=== PATIENT | female | born 1965 | race African-American/Black ===

== ENCOUNTER 2018-02-04 11:45 | Inpatient (IN) | payer OTHER ==
[2018-02-04 12:36] VITALS: BMI 34.7
--- NOTE | 2018-02-04 14:27 | HP ---
CIWA Score - CIWA Score Nausea/Vomitin Muscle Tremors: 3 Anxiety: 2 Agitation: 2 Paroxysmal Sweats: 1-Minimal Palms Moist Orientation: 0-Oriented Tacttile Disturbances: 1-Very Mild Itch/Numbness Auditory Disturbances: 1-Very Mild Visual Disturbances: 0-None Headache: 2-Mild CIWA-Ar Total Score: 15 Admission ROS BHS - HPI Chief Complaint: i need help to stop drinking alcohol and cocaine Allergies/Adverse Reactions: Allergies Allergy/AdvReac Type Severity Reaction Status Date / Time No Known Allergies Allergy Verified 02/04/18 14:37 History of Present Illness: this 52 years old female with alcohol and cocaine dependence,seeking detox, withdrawal symptom,last 1985 at [facility],old cva,carpal tunnel both wrists,ambulation with walker,fibroid uterus, arthritis both knees,back,neck, s/p arthroscopic surgery both knees rotator cuff of right shoulder longest sobriety 6 years - Ebola screening Have you traveled outside of the country in the last 21 days: No Have you had contact with anyone from an Ebola affected area: No Have you been sick,other than usual withdrawal symptoms: No Do you have a fever: No - Review of Systems Constitutional: Malaise, Night Sweats, Changes in sleep EENT: reports: Nose Congestion Respiratory: reports: No Symptoms reported Cardiac: reports: Palpitations GI: reports: Nausea, Poor Appetite, Abdominal cramping : reports: No Symptoms Reported Integumentary: reports: Dryness Neuro: reports: Headache, Tremors Endocrine: reports: No Symptoms Reported Hematology: reports: No Symptoms Reported Psychiatric: reports: No Sypmtoms Reported, Judgement Intact, Mood/Affect Appropiate, Orientated x3, other (bipolar disorder) Patient History - Patient Medical History Hx Anemia: No Hx Asthma: No Hx Chronic Obstructive Pulmonary Disease (COPD): No Hx Cancer: No Hx Cardiac Disorders: No Hx Congestive Heart Failure: No Hx Hypertension: Yes (on med) Hx Hypercholesterolemia: No Hx Pacemaker: No HX Cerebrovascular Accident: Yes (old in 2006) Hx Seizures: No Hx Dementia: No Hx Diabetes: No Hx Gastrointestinal Disorders: No Hx Liver Disease: No Hx Genitourinary Disorders: No Hx Sexually Transmitted Disorders: No Hx Renal Disease (ESRD): No Hx Thyroid Disease: No Hx Human Immunodeficiency Virus (HIV): No (last 01/23) Hx Hepatitis C: No Hx Depression: Yes Hx Suicide Attempt: No Hx Bipolar Disorder: Yes (no med) Hx Schizophrenia: No Other Medical History: no suicidal,no homicidal,carpal tunnel both,fibroid - Patient Surgical History Past Surgical History: Yes Hx Orthopedic Surgery: Yes (arthroscopic sugery both knees,skin graft rt foot,) - PPD History Previous Implant?: Yes Documented Results: Positive w/o proof Implanted On Prior R Admission?: No PPD to be Administered?: No - Reproductive History Patient is a Female of Child Bearing Age (11 -55 yrs old): Yes Patient : No - Smoking Cessation Smoking history: Current every day smoker Have you smoked in the past 12 months: Yes Aproximately how many cigarettes per day: 10 Hx Chewing Tobacco Use: No Initiated information on smoking cessation: Yes 'Breaking Loose' booklet given: 02/04/18 - Substance & Tx. History Hx Alcohol Use: Yes Hx Substance Use: Yes Substance Use Type: Alcohol, Cocaine Hx Substance Use Treatment: Yes (1985 [facility]) - Substances Abused Alcohol Route: Oral Frequency: Daily Amount used: 1 pint whiskey Age of first use: 13 Date of Last Use: 02/04/18 Cocaine Route: Inhalation Frequency: 1-2 times per week Amount used: $100 Age of first use: 11 Date of Last Use: 02/02/18 Family Disease History - Family Disease History Family Disease History: Other: Father (alcohol,) Admission Physical Exam BHS - Vital Signs Vital Signs: Vital Signs - 24 hr 02/04/18 12:34 Temperature 97.9 F Pulse Rate 90 Respiratory 18 Rate Blood Pressure 113/68 - Physical General Appearance: Yes: Moderate Distress, Tremorous, Irritable, Anxious HEENTM: Yes: FRANTZ, Pharynx Normal, Other (s/p reconstructive surgery right face) Respiratory: Yes: Lungs Clear, Normal Breath Sounds, No Respiratory Distress Neck: Yes: Within Normal Limits, Supple, Trachea in good position Breast: Yes: Breast Exam Deferred Cardiology: Yes: Within Normal Limits, Regular Rhythm, Regular Rate, S1, S2 Abdominal: Yes: Within Normal Limits, Normal Bowel Sounds, Non Tender, Flat, Soft Genitourinary: Yes: Within Normal Limits Back: Yes: Muscle Spasm Musculoskeletal: Yes: full range of Motion, Back pain, Muscle Pain Extremities: Yes: Normal Range of Motion, Tremors 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, Alert, Motor Strength 5/5 Integumentary: Yes: Dry Lymphatic: Yes: Within Normal Limits - Diagnostic (1) Alcohol dependence with uncomplicated withdrawal Current Visit: Yes Status: Acute (2) Cocaine dependence Current Visit: Yes Status: Acute (3) Old cerebrovascular accident (CVA) without late effect Current Visit: Yes Status: Acute (4) Arthritis Current Visit: Yes Status: Acute (5) Fibroid uterus Current Visit: Yes Status: Acute (6) Carpal tunnel syndrome Current Visit: Yes Status: Acute (7) Essential hypertension Current Visit: Yes Status: Acute (8) Positive PPD, treated Current Visit: Yes Status: Acute (9) Bipolar disorder Current Visit: Yes Status: Acute (10) Nicotine dependence Current Visit: Yes Status: Acute (11) Walker as ambulation aid Current Visit: Yes Status: Acute (12) History of skin graft Current Visit: Yes Status: Acute (13) Rotator cuff disorder Current Visit: Yes Status: Acute Cleared for Admission [facility] - Detox or Rehab [facility] Level of Care: Medically Managed Detox Regimen/Protocol: Librium [facility] Breath Alcohol Content Breath Alcohol Content: 0 Urine Pregancy Test - Result Urine Test Results: Negative- NO Line Present Urine Drug Screen - Results Drug Screen Negative: No Urine Drug Screen Results: ROLLY-Cocaine
[2018-02-04] MEDS ORDERED: ACETAMINOPHEN 325 MG TABLET (FP) PO PRN (15:35)
[2018-02-04] MEDS ORDERED: chlordiazePOXIDE HCL 25 MG CAPSULE PO PRN (15:35)
[2018-02-04] MEDS ORDERED: guaiFENesin/D-METHORPHAN HB 10 ML UNIT-DOSE CUPS PO PRN (15:35)
[2018-02-04] MEDS ORDERED: P-EPHED 60MG/TRIPROLIDI 2.5MG TABLET PO PRN (15:35)
[2018-02-04] MEDS ORDERED: MENTHOL/PHENOL 1 EACH UD MM PRN (15:35)
[2018-02-04] MEDS ORDERED: MAG HYDROX/AL HYDROX/SIMETH 30 ML UNIT-DOSE CUP PO PRN (15:35)
[2018-02-04] MEDS ORDERED: MAGNESIUM HYDROX 2400MG/30ML ORAL SUSPENSION 30 ML CUP PO PRN (15:35)
[2018-02-04] MEDS ORDERED: IBUPROFEN 400 MG TABLET (FP) PO PRN (15:35)
[2018-02-04] MEDS ORDERED: MAGNESIUM CITRATE 300 ML BOTTLE PO PRN (15:35)
[2018-02-04] MEDS ORDERED: LOPERAMIDE HCL 2 MG CAPSULE PO PRN (15:35)
[2018-02-04] MEDS ORDERED: hydrOXYzine PAMOATE 50 MG CAPSULE (FP) PO PRN (15:35)
[2018-02-04] MEDS ORDERED: chlordiazePOXIDE HCL 25 MG CAPSULE PO ONE (16:00)
[2018-02-04] MEDS: chlordiazePOXIDE HCL 25 MG CAPSULE PO SCH ×2 (17:31→22:27)
[2018-02-04] MEDS ORDERED: MELATONIN 5 MG TABLETS PO PRN (22:00)
[2018-02-04] MEDS: THIAMINE HCL 100 MG TABLET (FP) PO SCH (22:27)
[2018-02-04] MEDS: PREGABALIN 75 MG CAPSULE PO SCH (22:27)
[2018-02-04 23:10] LABS: URINE APPEARANCE CLOUDY; URINE BILIRUBIN NEGATIVE (<2.0 mg/dL); URINE COLOR YELLOW; URINE GLUCOSE (UA) NEGATIVE (NEGATIVE); URINE KETONE NEGATIVE (NEGATIVE); URINE LEUK ESTERASE NEGATIVE (NEGATIVE); URINE NITRITE NEGATIVE (NEGATIVE); URINE PROTEIN NEGATIVE (NEGATIVE); URINE UROBILINOGEN NEGATIVE mg/dL (0.2-1.0)
[2018-02-05] MEDS: chlordiazePOXIDE HCL 25 MG CAPSULE PO SCH ×4 (06:45→23:29)
[2018-02-05 10:02] LABS: HEMATOCRIT 39.5 % (32.4-45.2); HEMOGLOBIN 13.1 GM/dL (10.7-15.3); MCH 30.9 pg (25.7-33.7); MCHC 33.2 g/dl (32.0-36.0); MEAN CELL VOLUME 92.9 fl (80-96); MEAN PLT VOLUME 9.7 fl (7.5-11.1); PLATELET COUNT 222 K/MM3 (134-434); RBC 4.25 M/mm3 (3.60-5.2); RDW 14.5 % (11.6-15.6); WHITE BLOOD COUNT 8.3 K/mm3 (4.0-10.0)
[2018-02-05] MEDS: PRENATAL VITAMINS W/ FOLIC ACID TABLET (FP) PO SCH (10:42)
[2018-02-05] MEDS: HYDROCHLOROTHIAZIDE 12.5 MG CAPSULE (FP) PO SCH (10:43)
[2018-02-05] MEDS: ASPIRIN 81 MG CHEWABLE TABLETS PO SCH (10:43)
[2018-02-05 11:12] LABS: ALBUMIN 3.9 g/dl (3.4-5.0); CHLORIDE 109 mmol/L (98-107); POTASSIUM 3.9 mmol/L (3.5-5.1); SODIUM 143 mmol/L (136-145)
[2018-02-05 11:17] LABS: ALK PHOS 74 U/L (45-117); ANION GAP 6 (8-16); BILIRUBIN,TOTAL 0.6 mg/dL (0.2-1.0); BLOOD UREA NITROGEN 14 mg/dL (7-18); CALCIUM 8.8 mg/dL (8.5-10.1); CO2 28 mmol/L (21-32); GLUCOSE,RANDOM 88 mg/dL (74-106); SGOT/AST 16 U/L (15-37); SGPT/ALT 15 U/L (12-78)
[2018-02-05] MEDS ORDERED: COLLOIDAL OATMEAL 1 BAR EACH TP PRN (11:19)
[2018-02-05] MEDS: PREGABALIN 75 MG CAPSULE PO SCH ×2 (11:27→23:30)
--- NOTE | 2018-02-05 12:05 | PN ---
[facility] CIWA - CIWA Score Nausea/Vomitin-No Nausea/No Vomiting Muscle Tremors: 3 Anxiety: 3 Agitation: 3 Paroxysmal Sweats: 1-Minimal Palms Moist Orientation: 0-Oriented Tacttile Disturbances: 2-Mild Itch/Numbness/Burn Auditory Disturbances: 0-None Visual Disturbances: 0-None Headache: 0-None Present CIWA-Ar Total Score: 12 S Progress Note (SOAP) Subjective: mild gi distress, skin itching trouble sleep at night showered wants aveeno soap and skin cream admitted last dose antihypertensant was a week ago Objective: 02/05/18 12:08 Vital Signs Temperature 97.7 F 02/05/18 10:38 Pulse Rate 88 02/05/18 10:38 Respiratory Rate 18 02/05/18 10:38 Blood Pressure 99/64 02/05/18 10:38 O2 Sat by Pulse Oximetry (%) Laboratory Last Values WBC 8.3 K/mm3 (4.0-10.0) 02/05/18 06:00 RBC 4.25 M/mm3 (3.60-5.2) 02/05/18 06:00 Hgb 13.1 GM/dL (10.7-15.3) 02/05/18 06:00 Hct 39.5 % (32.4-45.2) 02/05/18 06:00 MCV 92.9 fl (80-96) 02/05/18 06:00 MCH 30.9 pg (25.7-33.7) 02/05/18 06:00 MCHC 33.2 g/dl (32.0-36.0) 02/05/18 06:00 RDW 14.5 % (11.6-15.6) 02/05/18 06:00 Plt Count 222 K/MM3 (134-434) 02/05/18 06:00 MPV 9.7 fl (7.5-11.1) 02/05/18 06:00 Sodium 143 mmol/L (136-145) 02/05/18 06:00 Potassium 3.9 mmol/L (3.5-5.1) 02/05/18 06:00 Chloride 109 mmol/L (98-107) H 02/05/18 06:00 Carbon Dioxide 28 mmol/L (21-32) 02/05/18 06:00 Anion Gap 6 (8-16) L 02/05/18 06:00 BUN 14 mg/dL (7-18) 02/05/18 06:00 Creatinine 1.0 mg/dL (0.55-1.02) 02/05/18 06:00 Creat Clearance w eGFR 58.69 (>60) 02/05/18 06:00 Random Glucose 88 mg/dL (74-106) 02/05/18 06:00 Calcium 8.8 mg/dL (8.5-10.1) 02/05/18 06:00 Total Bilirubin 0.6 mg/dL (0.2-1.0) 02/05/18 06:00 AST 16 U/L (15-37) 02/05/18 06:00 ALT 15 U/L (12-78) 02/05/18 06:00 Alkaline Phosphatase 74 U/L (45-117) 02/05/18 06:00 Total Protein 8.0 g/dl (6.4-8.2) 02/05/18 06:00 Albumin 3.9 g/dl (3.4-5.0) 02/05/18 06:00 Urine Color Yellow 02/04/18 23:00 Urine Appearance Cloudy 02/04/18 23:00 Urine pH 5.0 (5.0-8.0) 02/04/18 23:00 Ur Specific [place] 1.017 (1.001-1.035) 02/04/18 23:00 Urine Protein Negative (NEGATIVE) 02/04/18 23:00 Urine Glucose (UA) Negative (NEGATIVE) 02/04/18 23:00 Urine Ketones Negative (NEGATIVE) 02/04/18 23:00 Urine Blood Negative (NEGATIVE) 02/04/18 23:00 Urine Nitrite Negative (NEGATIVE) 02/04/18 23:00 Urine Bilirubin Negative (<2.0 mg/dL) 02/04/18 23:00 Urine Urobilinogen Negative mg/dL (0.2-1.0) 02/04/18 23:00 Ur Leukocyte Esterase Negative (NEGATIVE) 02/04/18 23:00 HIV 1&2 Antibody Screen Negative 02/04/18 15:00 HIV P24 Antigen Negative 02/04/18 15:00 lab noted Assessment: 02/05/18 12:09 withdrawal sx Plan: continue detox
[2018-02-05 12:50] LABS: SICKLE CELL SCREEN NEGATIVE (NEGATIVE)
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
[2018-02-05] MEDS: MINERAL OIL/PETROLAT/WATER TOPICAL CREAM 113 GM JAR TP SCH (23:29)
[2018-02-05] MEDS: THIAMINE HCL 100 MG TABLET (FP) PO SCH (23:30)
[2018-02-06] MEDS: chlordiazePOXIDE HCL 25 MG CAPSULE PO SCH ×2 (05:42→10:14)
--- NOTE | 2018-02-06 09:48 | EKG ---
Test Reason : Blood Pressure : / mmHG Vent. Rate : 079 BPM Atrial Rate : 079 BPM P-R Int : 160 ms QRS Dur : 070 ms QT Int : 380 ms P-R-T Axes : 059 032 032 degrees QTc Int : 435 ms NORMAL SINUS RHYTHM NONSPECIFIC T WAVE ABNORMALITY ABNORMAL ECG NO PREVIOUS ECGS AVAILABLE Confirmed by DORI STEVEN, JAXSON ([id number]) on 02/06/2018 9:48:13 AM Referred By: Confirmed By:JAXSON MEADOWS MD
[2018-02-06] MEDS: PREGABALIN 75 MG CAPSULE PO SCH ×2 (10:14→22:11)
[2018-02-06] MEDS: ASPIRIN 81 MG CHEWABLE TABLETS PO SCH (10:14)
[2018-02-06] MEDS: HYDROCHLOROTHIAZIDE 12.5 MG CAPSULE (FP) PO SCH (10:14)
[2018-02-06] MEDS: PRENATAL VITAMINS W/ FOLIC ACID TABLET (FP) PO SCH (10:14)
--- NOTE | 2018-02-06 11:18 | PN ---
S CIWA - CIWA Score Nausea/Vomitin-Mild Nausea/No Vomiting Muscle Tremors: 3 Anxiety: 2 Agitation: 2 Paroxysmal Sweats: 1-Minimal Palms Moist Orientation: 0-Oriented Tacttile Disturbances: 0-None Auditory Disturbances: 0-None Visual Disturbances: 0-None Headache: 0-None Present CIWA-Ar Total Score: 9 BHS Progress Note (SOAP) Subjective: mild gi distress sweat tremor anxiety restlessness agitation irritable Objective: 02/06/18 11:20 Vital Signs Temperature 97.9 F 02/06/18 09:30 Pulse Rate 88 02/06/18 09:30 Respiratory Rate 18 02/06/18 09:30 Blood Pressure 115/71 02/06/18 09:30 O2 Sat by Pulse Oximetry (%) Laboratory Last Values WBC 8.3 K/mm3 (4.0-10.0) 02/05/18 06:00 RBC 4.25 M/mm3 (3.60-5.2) 02/05/18 06:00 Hgb 13.1 GM/dL (10.7-15.3) 02/05/18 06:00 Hct 39.5 % (32.4-45.2) 02/05/18 06:00 MCV 92.9 fl (80-96) 02/05/18 06:00 MCH 30.9 pg (25.7-33.7) 02/05/18 06:00 MCHC 33.2 g/dl (32.0-36.0) 02/05/18 06:00 RDW 14.5 % (11.6-15.6) 02/05/18 06:00 Plt Count 222 K/MM3 (134-434) 02/05/18 06:00 MPV 9.7 fl (7.5-11.1) 02/05/18 06:00 Sickle Cell Screen Negative (NEGATIVE) 02/05/18 06:00 Sodium 143 mmol/L (136-145) 02/05/18 06:00 Potassium 3.9 mmol/L (3.5-5.1) 02/05/18 06:00 Chloride 109 mmol/L (98-107) H 02/05/18 06:00 Carbon Dioxide 28 mmol/L (21-32) 02/05/18 06:00 Anion Gap 6 (8-16) L 02/05/18 06:00 BUN 14 mg/dL (7-18) 02/05/18 06:00 Creatinine 1.0 mg/dL (0.55-1.02) 02/05/18 06:00 Creat Clearance w eGFR 58.69 (>60) 02/05/18 06:00 Random Glucose 88 mg/dL (74-106) 02/05/18 06:00 Calcium 8.8 mg/dL (8.5-10.1) 02/05/18 06:00 Total Bilirubin 0.6 mg/dL (0.2-1.0) 02/05/18 06:00 AST 16 U/L (15-37) 02/05/18 06:00 ALT 15 U/L (12-78) 02/05/18 06:00 Alkaline Phosphatase 74 U/L (45-117) 02/05/18 06:00 Total Protein 8.0 g/dl (6.4-8.2) 02/05/18 06:00 Albumin 3.9 g/dl (3.4-5.0) 02/05/18 06:00 Urine Color Yellow 02/04/18 23:00 Urine Appearance Cloudy 02/04/18 23:00 Urine pH 5.0 (5.0-8.0) 02/04/18 23:00 Ur Specific [place] 1.017 (1.001-1.035) 02/04/18 23:00 Urine Protein Negative (NEGATIVE) 02/04/18 23:00 Urine Glucose (UA) Negative (NEGATIVE) 02/04/18 23:00 Urine Ketones Negative (NEGATIVE) 02/04/18 23:00 Urine Blood Negative (NEGATIVE) 02/04/18 23:00 Urine Nitrite Negative (NEGATIVE) 02/04/18 23:00 Urine Bilirubin Negative (<2.0 mg/dL) 02/04/18 23:00 Urine Urobilinogen Negative mg/dL (0.2-1.0) 02/04/18 23:00 Ur Leukocyte Esterase Negative (NEGATIVE) 02/04/18 23:00 HIV 1&2 Antibody Screen Negative 02/04/18 15:00 HIV P24 Antigen Negative 02/04/18 15:00 lab noted Assessment: 02/06/18 11:21 withdrawal sx Plan: continue detox
[2018-02-06] MEDS: chlordiazePOXIDE 5 MG CAPSULE PO SCH ×2 (17:14→22:11)
[2018-02-06] MEDS: ZOLPIDEM TARTRATE 5 MG TABLET PO PRN (22:11)
[2018-02-06] MEDS: THIAMINE HCL 100 MG TABLET (FP) PO SCH (22:11)
[2018-02-06] MEDS: MINERAL OIL/PETROLAT/WATER TOPICAL CREAM 113 GM JAR TP SCH (22:51)
[2018-02-07] MEDS: chlordiazePOXIDE 5 MG CAPSULE PO SCH ×2 (06:45→10:21)
--- NOTE | 2018-02-07 06:45 | PN ---
[facility] Progress Note Note: I was called by the nurse, Mr Kylie Andrews told evaluate patient who fell this morning. Patient states " I was going to get my medication, felt dizzy and fell' '. Fall was witnessed by another patient, Ms. Emma Lr in [address]. Patient states that she fell on her knees. She denies pain or discomfort at this time. No injury noted or reported. Fall protocol # 2 initiated. Vital sign status post fall B/P 107/69, HR 77, R 18, T 97.7F. Vital Signs Temperature 98.0 F 02/06/18 22:13 Pulse Rate 87 02/06/18 22:13 Respiratory Rate 18 02/07/18 03:30 Blood Pressure 107/75 02/06/18 22:13 O2 Sat by Pulse Oximetry (%) Laboratory Last Values WBC 8.3 K/mm3 (4.0-10.0) 02/05/18 06:00 RBC 4.25 M/mm3 (3.60-5.2) 02/05/18 06:00 Hgb 13.1 GM/dL (10.7-15.3) 02/05/18 06:00 Hct 39.5 % (32.4-45.2) 02/05/18 06:00 MCV 92.9 fl (80-96) 02/05/18 06:00 MCH 30.9 pg (25.7-33.7) 02/05/18 06:00 MCHC 33.2 g/dl (32.0-36.0) 02/05/18 06:00 RDW 14.5 % (11.6-15.6) 02/05/18 06:00 Plt Count 222 K/MM3 (134-434) 02/05/18 06:00 MPV 9.7 fl (7.5-11.1) 02/05/18 06:00 Sickle Cell Screen Negative (NEGATIVE) 02/05/18 06:00 Sodium 143 mmol/L (136-145) 02/05/18 06:00 Potassium 3.9 mmol/L (3.5-5.1) 02/05/18 06:00 Chloride 109 mmol/L (98-107) H 02/05/18 06:00 Carbon Dioxide 28 mmol/L (21-32) 02/05/18 06:00 Anion Gap 6 (8-16) L 02/05/18 06:00 BUN 14 mg/dL (7-18) 02/05/18 06:00 Creatinine 1.0 mg/dL (0.55-1.02) 02/05/18 06:00 Creat Clearance w eGFR 58.69 (>60) 02/05/18 06:00 Random Glucose 88 mg/dL (74-106) 02/05/18 06:00 Calcium 8.8 mg/dL (8.5-10.1) 02/05/18 06:00 Total Bilirubin 0.6 mg/dL (0.2-1.0) 02/05/18 06:00 AST 16 U/L (15-37) 02/05/18 06:00 ALT 15 U/L (12-78) 02/05/18 06:00 Alkaline Phosphatase 74 U/L (45-117) 02/05/18 06:00 Total Protein 8.0 g/dl (6.4-8.2) 02/05/18 06:00 Albumin 3.9 g/dl (3.4-5.0) 02/05/18 06:00 Urine Color Yellow 02/04/18 23:00 Urine Appearance Cloudy 02/04/18 23:00 Urine pH 5.0 (5.0-8.0) 02/04/18 23:00 Ur Specific [place] 1.017 (1.001-1.035) 02/04/18 23:00 Urine Protein Negative (NEGATIVE) 02/04/18 23:00 Urine Glucose (UA) Negative (NEGATIVE) 02/04/18 23:00 Urine Ketones Negative (NEGATIVE) 02/04/18 23:00 Urine Blood Negative (NEGATIVE) 02/04/18 23:00 Urine Nitrite Negative (NEGATIVE) 02/04/18 23:00 Urine Bilirubin Negative (<2.0 mg/dL) 02/04/18 23:00 Urine Urobilinogen Negative mg/dL (0.2-1.0) 02/04/18 23:00 Ur Leukocyte Esterase Negative (NEGATIVE) 02/04/18 23:00 RPR Titer Nonreactive (NONREACTIVE) 02/05/18 06:00 HIV 1&2 Antibody Screen Negative 02/04/18 15:00 HIV P24 Antigen Negative 02/04/18 15:00 Action: Fall protocol # 2 initiated.
[2018-02-07] MEDS: PRENATAL VITAMINS W/ FOLIC ACID TABLET (FP) PO SCH (10:22)
[2018-02-07] MEDS: HYDROCHLOROTHIAZIDE 12.5 MG CAPSULE (FP) PO SCH (10:22)
[2018-02-07] MEDS: ASPIRIN 81 MG CHEWABLE TABLETS PO SCH (10:22)
[2018-02-07] MEDS: PREGABALIN 75 MG CAPSULE PO SCH ×2 (10:23→23:16)
--- NOTE | 2018-02-07 11:30 | PN ---
S Progress Note (SOAP) Subjective: feeling better less sweat no tremor denies pain from fall on 02/07/18 alert oriented x 3 social with peers in day room Objective: 02/07/18 11:29 Vital Signs Temperature 97.5 F L 02/07/18 10:25 Pulse Rate 80 02/07/18 10:25 Respiratory Rate 18 02/07/18 10:25 Blood Pressure 119/76 02/07/18 10:25 O2 Sat by Pulse Oximetry (%) Laboratory Last Values WBC 8.3 K/mm3 (4.0-10.0) 02/05/18 06:00 RBC 4.25 M/mm3 (3.60-5.2) 02/05/18 06:00 Hgb 13.1 GM/dL (10.7-15.3) 02/05/18 06:00 Hct 39.5 % (32.4-45.2) 02/05/18 06:00 MCV 92.9 fl (80-96) 02/05/18 06:00 MCH 30.9 pg (25.7-33.7) 02/05/18 06:00 MCHC 33.2 g/dl (32.0-36.0) 02/05/18 06:00 RDW 14.5 % (11.6-15.6) 02/05/18 06:00 Plt Count 222 K/MM3 (134-434) 02/05/18 06:00 MPV 9.7 fl (7.5-11.1) 02/05/18 06:00 Sickle Cell Screen Negative (NEGATIVE) 02/05/18 06:00 Sodium 143 mmol/L (136-145) 02/05/18 06:00 Potassium 3.9 mmol/L (3.5-5.1) 02/05/18 06:00 Chloride 109 mmol/L (98-107) H 02/05/18 06:00 Carbon Dioxide 28 mmol/L (21-32) 02/05/18 06:00 Anion Gap 6 (8-16) L 02/05/18 06:00 BUN 14 mg/dL (7-18) 02/05/18 06:00 Creatinine 1.0 mg/dL (0.55-1.02) 02/05/18 06:00 Creat Clearance w eGFR 58.69 (>60) 02/05/18 06:00 Random Glucose 88 mg/dL (74-106) 02/05/18 06:00 Calcium 8.8 mg/dL (8.5-10.1) 02/05/18 06:00 Total Bilirubin 0.6 mg/dL (0.2-1.0) 02/05/18 06:00 AST 16 U/L (15-37) 02/05/18 06:00 ALT 15 U/L (12-78) 02/05/18 06:00 Alkaline Phosphatase 74 U/L (45-117) 02/05/18 06:00 Total Protein 8.0 g/dl (6.4-8.2) 02/05/18 06:00 Albumin 3.9 g/dl (3.4-5.0) 02/05/18 06:00 Urine Color Yellow 02/04/18 23:00 Urine Appearance Cloudy 02/04/18 23:00 Urine pH 5.0 (5.0-8.0) 02/04/18 23:00 Ur Specific [place] 1.017 (1.001-1.035) 02/04/18 23:00 Urine Protein Negative (NEGATIVE) 02/04/18 23:00 Urine Glucose (UA) Negative (NEGATIVE) 02/04/18 23:00 Urine Ketones Negative (NEGATIVE) 02/04/18 23:00 Urine Blood Negative (NEGATIVE) 02/04/18 23:00 Urine Nitrite Negative (NEGATIVE) 02/04/18 23:00 Urine Bilirubin Negative (<2.0 mg/dL) 02/04/18 23:00 Urine Urobilinogen Negative mg/dL (0.2-1.0) 02/04/18 23:00 Ur Leukocyte Esterase Negative (NEGATIVE) 02/04/18 23:00 RPR Titer Nonreactive (NONREACTIVE) 02/05/18 06:00 HIV 1&2 Antibody Screen Negative 02/04/18 15:00 HIV P24 Antigen Negative 02/04/18 15:00 lab noted Assessment: 02/07/18 11:30 mild withdrawal sx Plan: medically supervised detox
--- NOTE | 2018-02-07 14:13 | PN ---
[facility] Progress Note Note: unwitnessed fall fall protocol #1 ER evaluation Ambulance call
[2018-02-07] MEDS: chlordiazePOXIDE HCL 10 MG CAPSULE PO SCH ×2 (18:28→23:16)
[2018-02-07] MEDS: THIAMINE HCL 100 MG TABLET (FP) PO SCH (21:16)
[2018-02-07] MEDS: ZOLPIDEM TARTRATE 5 MG TABLET PO PRN (21:16)
[2018-02-07] MEDS: MINERAL OIL/PETROLAT/WATER TOPICAL CREAM 113 GM JAR TP SCH (23:16)
[2018-02-08] MEDS: chlordiazePOXIDE HCL 10 MG CAPSULE PO SCH (05:26)
[2018-02-08 07:29] VITALS: BP 105/66; PULSE 75; TEMP 97.5
--- NOTE | 2018-02-08 10:12 | DS ---
[facility] Detox Discharge Summary Admission Date: 02/04/18 Discharge Date: 02/08/18 - History Present History: Alcohol Dependence Additional Comments: 52 years old female admitted 02/04/18 for alcohol withdrawal sx completed alcohol detox regimen tolerated well denies alcohol withdrawal sx aftercare [facility] as per counselor arranged - Physical Exam Results Vital Signs: Vital Signs Temperature 97.5 F L 02/08/18 07:28 Pulse Rate 75 02/08/18 07:28 Respiratory Rate 18 02/08/18 07:28 Blood Pressure 105/66 02/08/18 07:28 O2 Sat by Pulse Oximetry (%) Pertinent Admission Physical Exam Findings: Vital Signs Temperature 97.5 F L 02/08/18 07:28 Pulse Rate 75 02/08/18 07:28 Respiratory Rate 18 02/08/18 07:28 Blood Pressure 105/66 02/08/18 07:28 O2 Sat by Pulse Oximetry (%) Laboratory Last Values WBC 8.3 K/mm3 (4.0-10.0) 02/05/18 06:00 RBC 4.25 M/mm3 (3.60-5.2) 02/05/18 06:00 Hgb 13.1 GM/dL (10.7-15.3) 02/05/18 06:00 Hct 39.5 % (32.4-45.2) 02/05/18 06:00 MCV 92.9 fl (80-96) 02/05/18 06:00 MCH 30.9 pg (25.7-33.7) 02/05/18 06:00 MCHC 33.2 g/dl (32.0-36.0) 02/05/18 06:00 RDW 14.5 % (11.6-15.6) 02/05/18 06:00 Plt Count 222 K/MM3 (134-434) 02/05/18 06:00 MPV 9.7 fl (7.5-11.1) 02/05/18 06:00 Sickle Cell Screen Negative (NEGATIVE) 02/05/18 06:00 Sodium 143 mmol/L (136-145) 02/05/18 06:00 Potassium 3.9 mmol/L (3.5-5.1) 02/05/18 06:00 Chloride 109 mmol/L (98-107) H 02/05/18 06:00 Carbon Dioxide 28 mmol/L (21-32) 02/05/18 06:00 Anion Gap 6 (8-16) L 02/05/18 06:00 BUN 14 mg/dL (7-18) 02/05/18 06:00 Creatinine 1.0 mg/dL (0.55-1.02) 02/05/18 06:00 Creat Clearance w eGFR 58.69 (>60) 02/05/18 06:00 Random Glucose 88 mg/dL (74-106) 02/05/18 06:00 Calcium 8.8 mg/dL (8.5-10.1) 02/05/18 06:00 Total Bilirubin 0.6 mg/dL (0.2-1.0) 02/05/18 06:00 AST 16 U/L (15-37) 02/05/18 06:00 ALT 15 U/L (12-78) 02/05/18 06:00 Alkaline Phosphatase 74 U/L (45-117) 02/05/18 06:00 Total Protein 8.0 g/dl (6.4-8.2) 02/05/18 06:00 Albumin 3.9 g/dl (3.4-5.0) 02/05/18 06:00 Urine Color Yellow 02/04/18 23:00 Urine Appearance Cloudy 02/04/18 23:00 Urine pH 5.0 (5.0-8.0) 02/04/18 23:00 Ur Specific [place] 1.017 (1.001-1.035) 02/04/18 23:00 Urine Protein Negative (NEGATIVE) 02/04/18 23:00 Urine Glucose (UA) Negative (NEGATIVE) 02/04/18 23:00 Urine Ketones Negative (NEGATIVE) 02/04/18 23:00 Urine Blood Negative (NEGATIVE) 02/04/18 23:00 Urine Nitrite Negative (NEGATIVE) 02/04/18 23:00 Urine Bilirubin Negative (<2.0 mg/dL) 02/04/18 23:00 Urine Urobilinogen Negative mg/dL (0.2-1.0) 02/04/18 23:00 Ur Leukocyte Esterase Negative (NEGATIVE) 02/04/18 23:00 RPR Titer Nonreactive (NONREACTIVE) 02/05/18 06:00 HIV 1&2 Antibody Screen Negative 02/04/18 15:00 HIV P24 Antigen Negative 02/04/18 15:00 lab noted - Treatment Hospital Course: Detox Protocol Followed, Detoxed Safely, Responded well, Discharged Condition Good, Rehab Referral Accepted Patient has Accepted a Rehab Referral to: [facility] - Medication Discharge Medications: Ambulatory Orders Aspirin [Carlos Chewable Aspirin] 81 mg PO DAILY 02/04/18 Pregabalin [Lyrica -] 75 mg PO BID 02/04/18 Hydrochlorothiazide [Hctz -] 12.5 mg PO DAILY #30 cap 02/07/18 - Diagnosis (1) Alcohol dependence with uncomplicated withdrawal Status: Acute (2) Essential hypertension Status: Chronic (3) Positive PPD, treated Status: Resolved (4) Walker as ambulation aid Status: Chronic - AMA Did Patient Leave Against Medical Advice: No
== END 2018-02-08 06:56 | disposition home or self-care (01) | DRG 897 ==
LOC: YASAS 11:45 → Y6N 15:11
PROVIDERS: ADMIT Internal Medicine; ATTEND Internal Medicine
PROC: HZ2ZZZZ Detoxification Services for Substance Abuse Treatment (ICD-10-PCS; principal; 2018-02-04)
DX: F10.230 Alcohol dependence with withdrawal, uncomplicated (principal); F14.20 Cocaine dependence, uncomplicated; F17.210 Nicotine dependence, cigarettes, uncomplicated; F31.9 Bipolar disorder, unspecified; G56.00 Carpal tunnel syndrome, unspecified upper limb; I10 Essential (primary) hypertension; D25.9 Leiomyoma of uterus, unspecified; M67.919 Unspecified disorder of synovium and tendon, unspecified shoulder; Z86.73 Personal history of transient ischemic attack (TIA), and cerebral infarction without residual deficits; R76.11 Nonspecific reaction to tuberculin skin test without active tuberculosis; R26.89 Other abnormalities of gait and mobility; Z99.89 Dependence on other enabling machines and devices
CPT/HCPCS: 36415; 80053; 81003; 85027; 85660; 86593; 87389; 93005; 93010

== ENCOUNTER 2023-06-12 14:35 | Inpatient (IN) | payer OTHER, BC ==
[2023-06-12 15:18] VITALS: BMI 29.6
[2023-06-12] MEDS ORDERED: MAG HYDROX/AL HYDROX/SIMETH 30 ML UNIT-DOSE CUP PO PRN (18:18)
[2023-06-12] MEDS ORDERED: NALOXONE HCL 0.4 MG/ML VIAL IM PRN (18:18)
[2023-06-12] MEDS ORDERED: AMMONIUM LACTATE 12% LOTION 225 GM BOTTLE TP PRN (18:18)
[2023-06-12] MEDS ORDERED: LOPERAMIDE HCL 2 MG CAPSULE PO PRN (18:18)
[2023-06-12] MEDS ORDERED: IBUPROFEN 600 MG TABLET (FP) PO PRN (18:18)
[2023-06-12] MEDS ORDERED: MAGNESIUM HYDROX 2400MG/30ML ORAL SUSPENSION 30 ML CUP PO PRN (18:18)
[2023-06-12] MEDS ORDERED: IBUPROFEN 400 MG TABLET (FP) PO PRN (18:18)
[2023-06-12] MEDS ORDERED: BENZONATATE 200 MG CAPSULE PO PRN (18:18)
[2023-06-12] MEDS ORDERED: BENZOCAINE/MENTHOL (CHLORASEPTIC ) LOZENGE MM PRN (18:18)
[2023-06-12] MEDS ORDERED: POLYETHYLENE GLYCOL (HEALTHYLAX) 3350 17 GM PACKET PO PRN (18:18)
[2023-06-12] MEDS ORDERED: COLLOIDAL OATMEAL 1 BAR EACH TP PRN (18:18)
[2023-06-12] MEDS ORDERED: ACETAMINOPHEN 325 MG TABLET (FP) PO PRN (18:18)
[2023-06-12] MEDS ORDERED: NALOXONE HCL (KLOXXADO) 8 MG SPRAY NS PRN (18:18)
[2023-06-12] MEDS ORDERED: guaiFENesin 600 MG TABLET.ER (FP) PO PRN (18:18)
[2023-06-12] MEDS: THIAMINE HCL 100 MG TABLET (FP) PO SCH (21:44)
[2023-06-12] MEDS: MELATONIN 5 MG TABLETS PO SCH (21:44)
[2023-06-12 21:54] VITALS: RESP 18
[2023-06-13] MEDS: ASPIRIN 81 MG CHEWABLE TABLETS PO SCH (11:24)
[2023-06-13] MEDS: HYDROCHLOROTHIAZIDE 12.5 MG CAPSULE (FP) PO SCH (11:24)
[2023-06-13] MEDS: PRENATAL VITAMINS W/ FOLIC ACID TABLET (FP) PO SCH (11:24)
[2023-06-13 11:26] LABS: HEMATOCRIT 41.6 % (32.4-45.2); HEMOGLOBIN 13.6 GM/dL (10.7-15.3); MCH 30.8 pg (25.7-33.7); MCHC 32.6 g/dl (32.0-36.0); MEAN CELL VOLUME 94.5 fl (80-96); MEAN PLT VOLUME 8.4 fl (7.5-11.1); PLATELET COUNT 214 10^3/uL (134-434); RDW 14.3 % (11.6-15.6); WHITE BLOOD COUNT 6.5 K/mm3 (4.0-10.0)
[2023-06-13 11:31] LABS: POTASSIUM 4.2 mmol/L (3.5-5.1)
[2023-06-13 11:43] LABS: ALBUMIN 3.5 g/dl (3.4-5.0); BLOOD UREA NITROGEN 11.4 mg/dL (7-18); CALCIUM 9.5 mg/dL (8.5-10.1)
[2023-06-13 11:47] LABS: CREATININE 0.9 mg/dL (0.55-1.3)
[2023-06-13 11:48] LABS: BILIRUBIN,TOTAL 0.3 mg/dL (0.2-1)
[2023-06-13 11:49] LABS: TOT PROT 7.4 g/dl (6.4-8.2)
[2023-06-13 12:39] LABS: SYPHILIS W/ RPR CONF REACTIVE (NONREACTIVE)
[2023-06-13] MEDS: MELATONIN 5 MG TABLETS PO SCH (21:03)
[2023-06-13] MEDS: THIAMINE HCL 100 MG TABLET (FP) PO SCH (21:03)
[2023-06-13] MEDS: hydrOXYzine PAMOATE 25 MG CAPSULE (FP) PO PRN (21:06)
[2023-06-14] MEDS: PRENATAL VITAMINS W/ FOLIC ACID TABLET (FP) PO SCH (10:48)
[2023-06-14] MEDS: HYDROCHLOROTHIAZIDE 12.5 MG CAPSULE (FP) PO SCH (10:49)
[2023-06-14] MEDS: hydrOXYzine PAMOATE 25 MG CAPSULE (FP) PO PRN ×2 (10:49→21:37)
[2023-06-14] MEDS: ASPIRIN 81 MG CHEWABLE TABLETS PO SCH (10:49)
[2023-06-14 12:25] LABS: PH,URINE 5.5 (5.0-8.0); URINE APPEARANCE CLEAR; URINE BILIRUBIN NEGATIVE (NEGATIVE); URINE COLOR YELLOW; URINE GLUCOSE (UA) NEGATIVE (NEGATIVE); URINE KETONE NEGATIVE (NEGATIVE); URINE LEUK ESTERASE NEGATIVE (NEGATIVE); URINE NITRITE NEGATIVE (NEGATIVE); URINE PROTEIN NEGATIVE (NEGATIVE); URINE UROBILINOGEN 0.2 mg/dL (0.2-1.0)
[2023-06-14] MEDS: THIAMINE HCL 100 MG TABLET (FP) PO SCH (21:37)
[2023-06-14] MEDS: MELATONIN 5 MG TABLETS PO SCH (21:37)
[2023-06-15 07:18] VITALS: BP 156/97; PULSE 79; TEMP 97.9
[2023-06-15] MEDS: PRENATAL VITAMINS W/ FOLIC ACID TABLET (FP) PO SCH (09:36)
[2023-06-15] MEDS: ASPIRIN 81 MG CHEWABLE TABLETS PO SCH (09:36)
[2023-06-15] MEDS: HYDROCHLOROTHIAZIDE 12.5 MG CAPSULE (FP) PO SCH (09:37)
[2023-06-15] MEDS: hydrOXYzine PAMOATE 25 MG CAPSULE (FP) PO PRN (09:38)
[2023-06-15] MEDS ORDERED: hydrOXYzine PAMOATE 25 MG CAPSULE (FP) PO PRN (11:12)
[2023-06-15] MEDS ORDERED: traZODone HCL 50 MG TABLET (FP) PO SCH (22:00)
== END 2023-06-15 13:00 | disposition left against medical advice (07) | DRG 894 ==
LOC: YASAS 14:35 → Y5N 18:24
PROVIDERS: ADMIT Allergy & Immunology; ATTEND Psychiatry & Neurology Pain Medicine
PROC: HZ42ZZZ Group Counseling for Substance Abuse Treatment, Cognitive-Behavioral (ICD-10-PCS; principal; 2023-06-12)
DX: F10.20 Alcohol dependence, uncomplicated (principal); F14.20 Cocaine dependence, uncomplicated; F19.282 Other psychoactive substance dependence with psychoactive substance-induced sleep disorder; F12.20 Cannabis dependence, uncomplicated; F17.210 Nicotine dependence, cigarettes, uncomplicated; F25.9 Schizoaffective disorder, unspecified; I10 Essential (primary) hypertension; K21.9 Gastro-esophageal reflux disease without esophagitis; M17.0 Bilateral primary osteoarthritis of knee; M06.9 Rheumatoid arthritis, unspecified; Z86.11 Personal history of tuberculosis; Z86.73 Personal history of transient ischemic attack (TIA), and cerebral infarction without residual deficits; Z28.310 Unvaccinated for COVID-19; Z28.9 Immunization not carried out for unspecified reason
CPT/HCPCS: 36415; 71046-TC-FY; 80053; 81003; 85027; 86593; 86780; 86803; 87635